=== PATIENT | male | born 1945 | race Caucasian/White ===

== ENCOUNTER 2021-01-26 14:17 | Emergency (ER) | payer OTHER ==
[~2021-01-26] VITALS: Ht 170.2 cm; Wt 77.1 kg
[2021-01-26 14:17] VITALS: BP 144/84
[2021-01-26 14:49] LABS: ABSOLUTE NEUTROPHILS 2.5 thou/uL (1.4-8.2); BASOPHILS 0.6 % (0.0-2.0); EOSINOPHILS 4.6 % (0.0-3.0); HEMATOCRIT 42.6 % (42.0-52.0); HEMOGLOBIN 14.5 gm/dL (14.0-18.0); LYMPHOCYTES 23.2 % (24.0-44.0); MCH 33.1 pg (26.0-34.0); MCHC 34.2 g/dL (28.0-37.0); MONOCYTES 8.8 % (1.0-8.0); PLATELET COUNT 151 thou/uL (150-400); POLYS 62.8 % (36.0-66.0); RBC 4.39 mil/uL (4.50-6.00); RDW 14.4 % (10.5-14.5)
[2021-01-26 14:55] LABS: CALCIUM 8.7 mg/dL (8.5-10.1); CREATININE 1.2 mg/dL (0.7-1.3)
[2021-01-26 15:05] LABS: ALBUMIN 3.9 g/dL (3.4-5.0); TOTAL BILIRUBIN 0.8 mg/dL (0.2-1.0); TOTAL PROTEIN 6.9 g/dL (6.4-8.2)
[2021-01-26 15:22] LABS: URINE BILIRUBIN NEGATIVE (Negative); URINE BLOOD NEGATIVE (Negative); URINE CLARITY CLEAR; URINE COLOR YELLOW; URINE GLUCOSE-RANDOM* NEGATIVE (Negative); URINE KETONES NEGATIVE (Negative); URINE LEUKOCYTES-REFLEX NEGATIVE (Negative); URINE NITRITE-REFLEX NEGATIVE (Negative); URINE PROTEIN (DIPSTICK) NEGATIVE (Negative); URINE SPECIFIC GRAVITY >= 1.030 (1.005-1.035); URINE UROBILINOGEN 0.2 E.U./dl (0.2-1.0)
[2021-01-26] MEDS ORDERED: LORAZEPAM 0.50.5 MG PO (15:24)
[2021-01-26] MEDS ORDERED: OMEPRAZOLE 20 M20 M1 PO (15:24)
[2021-01-26] MEDS ORDERED: PRINIVIL20 MG PO (15:24)
[2021-01-26] MEDS ORDERED: ZOCOR 20 MG TAB20 M1 PO (15:24)
--- NOTE | 2021-01-27 09:46 | EKG ---
[place] [address] [address] [facility] [place] [address] ELECTROCARDIOGRAM REPORT Name: KRISTY KAN Room #: [facility]#: [id number] Admission: 01/26/21 Attend Phys: Discharge: 01/26/21 Date of : 47 Report #: [id number] [facility] ED Test Date: 2021-01-26 Test Time: 15:20:16 Pat Name: KRISTY KAN Department: Room: Gender: Fitness Assistant: : 1945 Requested By: Mert Watt Order Number: [id number] MD: Onel Serrano Measurements Intervals [place] Rate: 58 P: 0 IA: 242 QRS: -68 QRSD: 140 T: 20 QT: 447 QTc: 440 Interpretive Statements Sinus rhythm Prolonged IA interval RBBB and LAFB No previous ECG available for comparison Electronically Signed On 01-27-2021 9:46:36 CDT by Onel Serrano [email or web address] <ELECTRONICALLY SIGNED> By: Onel Serrano MD, [facility] 01/27/21 0946 1520 1520 Onel Serrano MD, FACC /EPI
== END 2021-01-26 17:18 | disposition home or self-care (01) ==
LOC: ER 14:17
PROVIDERS: Emergency Medicine; Physician Assistant
DX: R55 Syncope and collapse (principal); R11.0 Nausea

== ENCOUNTER → 2021-03-06 | Outpatient (CLI) | payer OTHER ==
[~2021-03-06] MED LIST: LORAZEPAM 0.50.5 MG PO; OMEPRAZOLE 20 M20 M1 PO; PRINIVIL20 MG PO; ZOCOR 20 MG TAB20 M1 PO
== END ==
LOC: SJCVC 10:51
PROVIDERS: ATTEND Internal Medicine
DX: R94.31 Abnormal electrocardiogram [ECG] [EKG] (principal); I45.2 Bifascicular block; I44.0 Atrioventricular block, first degree; R00.1 Bradycardia, unspecified; R55 Syncope and collapse; I45.3 Trifascicular block; I10 Essential (primary) hypertension; E78.5 Hyperlipidemia, unspecified; M35.2 Behcet's disease; Z79.899 Other long term (current) drug therapy; Z82.49 Family history of ischemic heart disease and other diseases of the circulatory system; Z88.8 Allergy status to other drugs, medicaments and biological substances

== ENCOUNTER → 2021-03-08 | Outpatient (CLI) | payer OTHER | LOC: SJCVCIMAG 10:48 | PROVIDERS: ATTEND Internal Medicine Cardiovascular Disease | DX: I08.0 Rheumatic disorders of both mitral and aortic valves (principal); R94.31 Abnormal electrocardiogram [ECG] [EKG]; I45.2 Bifascicular block; I44.0 Atrioventricular block, first degree; R55 Syncope and collapse; I10 Essential (primary) hypertension; Z88.8 Allergy status to other drugs, medicaments and biological substances; Z79.899 Other long term (current) drug therapy; Z72.89 Other problems related to lifestyle; Z82.49 Family history of ischemic heart disease and other diseases of the circulatory system ==

== ENCOUNTER 2021-03-09 06:53 | Observation (INO) | payer OTHER ==
[~2021-03-09] VITALS: Ht 170.2 cm; Wt 79.8 kg
[2021-03-09 08:17] VITALS: BP 125/80
[2021-03-09 08:26] LABS: ABSOLUTE NEUTROPHILS 1.8 thou/uL (1.4-8.2); BASOPHILS 0.4 % (0.0-2.0); EOSINOPHILS 5.6 % (0.0-3.0); HEMATOCRIT 40.8 % (42.0-52.0); LYMPHOCYTES 37.7 % (24.0-44.0); MCH 32.9 pg (26.0-34.0); MCHC 34.2 g/dL (28.0-37.0); MCV 96.2 fL (80.0-100.0); MONOCYTES 10.5 % (1.0-8.0); PLATELET COUNT 143 thou/uL (150-400); POLYS 45.8 % (36.0-66.0); RBC 4.24 mil/uL (4.50-6.00); RDW 13.9 % (10.5-14.5)
[2021-03-09 08:32] LABS: CALCIUM 8.6 mg/dL (8.5-10.1); CREATININE 1.2 mg/dL (0.7-1.3); POTASSIUM 4.2 mmol/L (3.5-5.1)
[2021-03-09 08:38] LABS: ALBUMIN 3.9 g/dL (3.4-5.0); TOTAL BILIRUBIN 0.6 mg/dL (0.2-1.0); TOTAL PROTEIN 6.6 g/dL (6.4-8.2)
[2021-03-09 08:46] LABS: APTT 27.7 Seconds (24.5-32.8); INR 0.97; PROTIME 10.6 Seconds (10.5-12.1)
--- NOTE | 2021-03-09 12:10 | NUR ---
PT BROUGHT TO BRIM PLATER HOLDING PER PACU NURSE AT 1145. PT AWAKE ALERT ORIENTED IN NAD. PACED RHYTHM ON MONITOR. DRINKING WATER. VSS. SITE LEFT UPPER CHEST CLEAN WITH SUTURE EDGES WELL APPROXIMATED. TO BEDSIDE. LEFT ARM IN SHOULDER IMMOBILIZER. AWAITING INPATIENT ROOM
[2021-03-09 14:40] VITALS: BP 118/85
--- NOTE | 2021-03-09 17:13 | NUR ---
RECEIVED PATIENT AT 1440 FROM FLIGHT ENGINEER INSTRUCTOR POST-PACEMAKER PROCEDURE. PATIENT ON BEDREST FOR THE REST OF THE DAY AND EVENING; ONLY ALLOWED UP TO BATHROOM WITH ASSISTANCE. PATIENT RESTING COMFORTABLY IN BED WITH HOB GREATER THAN 30 DEGREES. POST-OP VITALS COMPLETED. DENIES ANY CHEST PAIN, SOA, HEADACHE, NAUSEA, VOMITING, FATIGUE, OR DIZZINESS. SPOUSE PRESENT AT BEDSIDE. FALL PRECAUTIONS ARE IN PLACE AND CALL LIGHT WITHIN REACH. DENIES ANY ADDITIONAL NEEDS AT THIS TIME.
[2021-03-09 20:15] VITALS: BP 116/90
[2021-03-10 00:05] VITALS: BP 91/69
[2021-03-10 04:45] VITALS: BP 113/78
[2021-03-10 07:15] VITALS: BP 155/86
--- NOTE | 2021-03-10 07:38 | NUR ---
pt c/o incisional pain and mckeon given prn hydrocodone at hs and temazepam for sleep, vss, resting quietly in bed, plan cxr this am, pacemaker interrogated this am dr montoya notified of r atrial lead dislodgement and settings reset to vvvi @30 rythem belle sb in 50's, report given to next shift to con't ppoc.
[2021-03-10 11:05] VITALS: BP 128/82
[2021-03-10 14:10] VITALS: BP 184/97
--- NOTE | 2021-03-10 15:39 | NUR ---
PT VERY UPSET THIS AM THAT HE NEEDED TO GO BACK FOR SAME PROCEDURE THAT HE DID YESTERDAY. BACK FROM EP LAB APPROX 1330, NO A/V PACED AT A RATE OF 60. LEFT CHEST INCISION IS RED, SWOLLEN, AND APPROXIMATED WELL. PT AND HAVE BEEN THOUROUGHLY UPDATED ON PT CONDITION, POC, IMMOBILIZATION INSTRUCTION, AND BODY POSITIONING PRESCRIBED. PT SLOWLY PROGRESSING TOWARDS POC.
[2021-03-10 19:28] VITALS: BP 141/78
[2021-03-11 00:33] VITALS: BP 102/70
--- NOTE | 2021-03-11 01:52 | NUR ---
ASSUMED PT CARE AT 1900, AWAKE, ALERT AND ORIENTEDX4, AVPACED ON TELE, C/O PAIN AT THE INCISION SITE, PRN HYDROCODONE GIVEN WITH RELIEF, INCISION SITE TO THE L. CHEST CDI, SOME REDNESS NOTED, APPROXIMATED WELL, VITAL SIGNS STABLE, ASSESSMENTS CHARTED, L. SHOULDER IMMOBILIZER ON, NO NEEDS AT THIS TIME, PT RESTING, PLAN FOR CHEST XRAY IN THE AM
[2021-03-11 04:12] VITALS: BP 117/74
[2021-03-11 08:10] VITALS: BP 103/73
[2021-03-11 10:34] VITALS: BP 103/73
--- NOTE | 2021-03-11 10:40 | NUR ---
TOOK OVER CARE FOR THIS PATIENT AT 0700. PATIENT RESTING IN BED DURING BEDSIDE SHIFT REPORT. DENIES ANY CHEST PAIN, SOA, HEADACHE, DIZZINESS, FATIGUE, PARESTHESIAS. PATIENT SENT TO GET CHEST XRAY 2VIEW THIS AM TO CHECK DEVICE PLACEMENT; DEVICE CHECK COMPLETED THIS AM WELL. PLAN TO DISCHARGE PATIENT TODAY PENDING CARDIOLOGY ROUNDING AND ORDERS. PATIENT HAS LEFT SHOULDER IMMOBILIZER STILL IN PLACE. FALL PRECAUTIONS IN PLACE AND CALL LIGHT WITHIN REACH.
--- NOTE | 2021-03-11 11:00 | NUR ---
DISCHARGE EDUCATION PROVIDED TO THIS PATIENT AT THIS TIME. PATIENT AGREEABLE TO EDUCATION AND FOLLOW UP CARE. PATIENT TRANSPORTED VIA WHEELCHAIR AND LEFT VIA PERSONAL VEHICLE WITH SPOUSE.
--- NOTE | 2021-03-12 11:31 | P ---
[facility] [place] [address] PROCEDURE REPORT Name: KRISTY KAN [id number] Admission: 03/09/21 Attend Phys: Dallin Alba MD Discharge: 03/11/21 Date of : 47 Report #: [id number] THIS REPORT FOR: cc: Casimiro Campbell MD, Rene P. MD Couchonnal, Luis F. MD ~ PROCEDURE: Pacemaker implantation PREOPERATIVE DIAGNOSES: 1. Syncope. 2. Trifascicular block. POSTOPERATIVE DIAGNOSES: 1. Syncope. 2. Trifascicular block. INDICATIONS FOR PROCEDURE: The patient is a 75-year-old who recently had a syncopal episode and that was suggestive of a rhythmic event who has evidence of trifascicular block, who is here for dual chamber pacemaker implantation. Echocardiogram shows normal ejection fraction with moderate aortic stenosis. ANESTHESIA: The patient underwent MAC anesthesia with no anesthesia related complications. DESCRIPTION OF PROCEDURE: The patient underwent informed consent. He was then prepped and draped in a standard fashion, underwent venogram showing patency of left axillary vein and received IV Ancef for antibiotic prophylaxis. Next, lidocaine was injected below the level of left clavicle. Incision was made, pocket created over the prepectoral fascia and access was obtained twice to left axillary vein using the extrathoracic approach. Sheaths were positioned using the modified Seldinger technique. A lead was positioned in the right ventricular apex and right atrial appendage, both with adequate pacing and sensing thresholds. Leads were sutured to the prepectoral fascia. Device connected, tug test performed. Pocket was irrigated with vancomycin. Pocket closed in 2 layers using 2-0 for the deep layer, 3-0 for the middle layer and surgical glue was placed in the outer skin layer. The patient awoke neurologically and hemodynamically intact. No complications and no significant bleeding. Implanted device was a [employer] model number W3DR01, serial number [id number]. Atrial lead was a 5076, 52 cm, serial number [id number] and the ventricular lead was a 5076, 58 cm, serial number [id number]. The atrial lead demonstrated P waves of 1.4 millivolts, pacing impedance 437 ohms, pacing threshold 0.3 volts at 0.5 milliseconds. RV lead demonstrated R waves of 6.5 millivolts, pacing impedance of 608 ohms, pacing threshold 0.5 volts at 0.5 milliseconds. The device was programmed to the AAIR/DDDR 60/130 mode. [facility] [address] [place] [address] PROCEDURE REPORT Name: KRISTY KAN Room #: 201-P [facility] Jong Pelayo#: [id number] Admission: 03/09/21 Attend Phys: Dallin Alba MD Discharge: 03/11/21 Date of : 47 Report #: [id number] CONCLUSIONS: 1. Successful dual chamber pacemaker implantation. 2. Satisfactory atrial and ventricular pacing and sensing thresholds. <ELECTRONICALLY SIGNED> By: Dallin Alba MD 03/12/21 1131 0943 1935 Dallin Alba MD /nt
--- NOTE | 2021-03-12 11:31 | P ---
[facility] [place] [address] PROCEDURE REPORT Name: KRISTY KAN Room #: 201-P [facility] Jong Pelayo#: [id number] Admission: 03/09/21 Attend Phys: Dallin Alba MD Discharge: 03/11/21 Date of : 47 Report #: [id number] THIS REPORT FOR: cc: Casimiro Campbell MD, Rene P. MD Couchonnal, Luis F. MD ~ DATE OF SERVICE: 03/10/2021 ATRIAL LEAD REVISION HISTORY: The patient underwent dual-chamber pacemaker implantation yesterday and today, device was tested and the atrial lead appears to be dislodged into the RV. He is here for atrial lead revision. DESCRIPTION OF PROCEDURE: The patient was brought to the EP laboratory in a fasting and sedated state after undergoing informed consent. Fluoroscopy of the chest showed the atrial lead was floating in the right ventricle. The patient was prepped and draped in standard fashion receiving IV vancomycin and then I injected lidocaine at the prior incision site. The sutures were removed. Pocket was entered. Atrial lead disconnected from the device. A stylet was placed and the screw was retracted. The lead was positioned with a grade pacing and sensing thresholds and atrial lead stress test was performed with no dislodgement. The lead was sutured to prepectoral fascia connected to the device. All leads were tested again and found to be functioning normally. A TYRX antibiotic pouch was placed in the pocket and the pocket was irrigated with vancomycin and then closed in 2 layers and surgical glue was placed to outer skin layer. The atrial lead demonstrated P-wave of 1.2 millivolts, pacing impedance 437 ohms, pacing threshold 0.5 volts at 0.4 milliseconds. RV lead demonstrated R waves of 9 millivolts, pacing impedance 551 ohms, pacing threshold 0.5 volts at 0.4 milliseconds. Device was programmed back to its original settings. CONCLUSION: 1. Successful atrial lead revision. 2. Successful implantation of a TYRX antibiotic pouch. <ELECTRONICALLY SIGNED> By: Dallin Alba MD 03/12/21 1131 1158 1343 Dallin Alba MD /nt
== END 2021-03-11 12:49 | disposition home or self-care (01) ==
LOC: CATH 06:53 → 2N 06:54 → CATH 14:18 → 2N 03-11 12:49
PROVIDERS: ADMIT Internal Medicine Cardiovascular Disease; ATTEND Internal Medicine Cardiovascular Disease
DX: I45.3 Trifascicular block (principal); R55 Syncope and collapse; Z20.822 Contact with and (suspected) exposure to COVID-19; I10 Essential (primary) hypertension; E78.5 Hyperlipidemia, unspecified; Z79.899 Other long term (current) drug therapy
CPT/HCPCS: 62110; 62900; 65020; 65040; 70005

== ENCOUNTER → 2021-06-06 | Outpatient (CLI) | payer OTHER | LOC: SJCVC 12:41 | PROVIDERS: ATTEND Internal Medicine Cardiovascular Disease | DX: I35.0 Nonrheumatic aortic (valve) stenosis (principal); I45.3 Trifascicular block; I10 Essential (primary) hypertension; E78.5 Hyperlipidemia, unspecified; B19.20 Unspecified viral hepatitis C without hepatic coma; Z95.0 Presence of cardiac pacemaker; Z79.899 Other long term (current) drug therapy; Z88.8 Allergy status to other drugs, medicaments and biological substances; Z96.652 Presence of left artificial knee joint; Z98.890 Other specified postprocedural states ==